=== PATIENT | male | born 1965 | race Caucasian/White ===

== ENCOUNTER 2017-12-19 06:00 | Day surgery (SDC) | payer OTHER | END 2017-12-19 10:34 | disposition home or self-care (01) | LOC: AMB-ENDOS 06:00 | DX: D12.0 Benign neoplasm of cecum (principal); D12.3 Benign neoplasm of transverse colon; K64.1 Second degree hemorrhoids ==

== ENCOUNTER 2019-01-22 09:55 | Day surgery (SDC) | payer OTHER | END 2019-01-22 16:15 | disposition home or self-care (01) | LOC: AMB-ENDOS 09:55 | DX: K64.1 Second degree hemorrhoids (principal) ==